=== PATIENT | female | born 1975 | race Caucasian/White ===

== ENCOUNTER 2017-12-27 06:23 | Day surgery (SDC) | payer OTHER, SELFPAY ==
[2017-12-22 15:47] LABS: Hematocrit 43.3 % (37-47); Hemoglobin 14.5 g/dl (12.0-15.0); Mean Corp Hgb Conc 33.5 g/gl (32-36); Mean Corpuscular Hgb 29.9 pg (27.0-32.0); Mean Corpuscular Volume 89.3 fL (81-99); Mean Platelet Vol. 10.1 fl (6.2-12.0); Platelet Count 253 K/mm3 (150-450); RBC Distribution Width CV 12.7 % (11.6-14.6); RBC Distribution Width SD 41.6 fl (35.1-43.9); Red Blood Count 4.85 M/mm3 (4.2-5.4); White Blood Count 11.6 K/mm3 (4.4-11.0)
[2017-12-22 15:48] LABS: Scan Indicated on CBC? Y/N NO
[2017-12-22 15:59] LABS: Creatinine, Serum 0.74 mg/dL (0.55-1.02); EST Glomerular Filtration Rate 90 mL/min (>60); Est Glom Filt Rate - Afr Amer 109 mL/min (>60)
[2017-12-22 16:09] LABS: Prothrombin Time (Protime)PT. 13.4 SECONDS (11.7-14.9)
[2017-12-22 16:10] LABS: Partial Thromboplast Time 26.9 Seconds (24.1-36.2)
--- NOTE | 2017-12-26 13:53 | PCM.HP.BLA ---
History and Physical Date of Admission: 12/27/17 Surgical History and Physical Ibis Castaneda, a 42 year old female 2 0 1 0 2, presents for RAVH/BS on December 27, 2017 at 8:30. -- Recurrent Menorrhagia s/p Ablation; Known Fibroids -- Had a HTA 11/[address] 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 Menses are regular and last 5-6days but are extremely heavy and with lots of clots. She is currently on Sprintec again and sts it gives her minimal control. Menorrhagia which began 2 years ago. Ibis claims it started approx 1yr s/p HTA and has been present constantly for 2 years. It occurs during menses. It is located in the vagina. Ibis characterizes the quality heavy. Severity is severe. OCP's offer minimal help. Associated signs and symptoms are Menorrhagia. Additional comments are: Had hysteroscopy and D and C about 2004, HTA in about 2014, now bleeding heavily again; known fibroids noted at time of hysteroscopy. MEDICATIONS HISTORY: Patient is also takin. Multiple Vitamin, Womens tablet, One pill by mouth once a day 2. Sprintec (28) 0.25 mg-35 mcg tablet, 1 qd ALLERGIES: NKA Infections - none Illnesses - no serious past illnesses Accidents - no injuries of consequence Hospitalizations - Childbirth and see surgery Review of Systems: GENERAL - Denies fever, or chills SKIN - Denies skin changes EYES - Denies visual changes EARS - Denies difficulty hearing NOSE - Denies nasal congestion or bleeding MOUTH - Denies sore throat or difficulty swallowing NECK - Denies pain or swelling RESPIRATORY - Denies shortness of breath or wheezing CARDIOVASCULAR - Denies palpitations or chest pain GASTROINTESTINAL - Denies nausea, vomiting, diarrhea, constipation GENITOURINARY - Denies dysuria, frequency of urination, incontinence of urine MUSCULOSKELETAL - Denies joint or muscle pain NEUROLOGICAL - Denies localized numbness or weakness PSYCHIATRIC - Denies depression or anxiety ENDOCRINE - Denies heat or cold intolerance, weight loss or gain HEMATO-IMMUNOLOGIC - Denies excesive bleeding with cuts SOCIAL HISTORY: Alcohol Use - drinks occasionally Smoking - denies smoking Diet - no special diet Lifestyle - moderate stress lifestyle and Exercise - active Seat Belt Use - always Employer - [employer] 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 MENSTRUAL HISTORY: LMP Known?- HTAAmount/Duration - 5-6 DAYS, Regularity - Regular, Frequency - monthly days, LMP - 09/20/17, Age Onset Menarche - 9 PAST PREGNANCIES: Total Pregnancies - 3; Full Term Pregnancies - 2; Premature - 0; Abortions, Induced - 0; Abortions, Spontaneous - 1; Ectopics - 0; Multiple Births - 0; Living Children - 2 SURGICAL HISTORY: 1. Tubal, 2000 2. 12/05/2014 hysteroscopy, [facility] ; Dr. Azeb Calderon 3. 2005 H/S, D and C ; Mo Guy M.D. PHYSICAL EXAM BP- 144/82 Sitting, Right arm, large cuff Weight- 233.37834 lbs Height- 63.75 inch BMI:40.39 CONSTITUTIONAL - NAD, well nourished, and well developed SKIN - No rash, lesions, or ulcers HEENT - Normocephalic, PERRLA, EOMI NECK - No nodes, no nuchal rigidity and thyroid normal size and texture LYMPH NODES - Palpation of lymph nodes in neck and groins within normal limits LUNGS - CTA x2 without wheezes, crackles or rales CARDIAC - Regular rate and rhythm without rubs, murmurs, or gallops ABDOMEN - Without hepatosplenomegaly, distention, masses, rebound, or guarding; normal bowel sounds; no hernias EXTREMITIES - No edema or calf tenderness NEUROLOGICAL - Cranial nerves II-XII grossly intact PSYCHIATRIC - A and O to time, place, person, mood and affect External Genital Vagina - non-tender without lesions Urethra/Urethral Meatus - non-tender Bladder - non-tender Vagina - vaginal pfeiffer are pink and moist without loss of rugae and no evidence of atropy Cervix - without cervical motion tenderness and has normal size and features without evident lesions Uterus - enlarged uterus 8 wks, wt 125-150 g Adnexa - clear without masses or tenderness ASSESSMENT/PLAN: 1. Leiomyoma Of Uterus, Unspecified, Menorrhagia and Premenopausal Recurrent S/P HTA and S/P Hysteroscopy D and C. EMBx OK. Pt bleeding increasing gradually and now nearly intolerable for 4 days monthly. Discussed options and patient wants to proceed with hysterectomy. Minimal decensus of cervix so will proceed with RAVH/BS. Discussed RBAs and all questions answered.
--- NOTE | 2017-12-26 13:56 | HP.PCM_ITS ---
History and Physical Date of Admission: 12/27/17 Surgical History and Physical Ibis Castaneda, a 42 year old female 2 0 1 0 2, presents for RAVH/ BS on December 27, 2017 at 8:30. -- Recurrent Menorrhagia s/p Ablation; Known Fibroids -- Had a HTA 11/[address] 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 Menses are regular and last 5-6days but are extremely heavy and with lots of clots. She is currently on Sprintec again and sts it gives her minimal control. Menorrhagia which began 2 years ago. Ibis claims it started approx 1yr s/p HTA and has been present constantly for 2 years. It occurs during menses. It is located in the vagina. Ibis characterizes the quality heavy. Severity is severe. OCP's offer minimal help. Associated signs and symptoms are Menorrhagia. Additional comments are: Had hysteroscopy and D and C about 2004, HTA in about 2014, now bleeding heavily again; known fibroids noted at time of hysteroscopy. MEDICATIONS HISTORY: Patient is also takin. Multiple Vitamin, Womens tablet, One pill by mouth once a day 2. Sprintec (28) 0.25 mg-35 mcg tablet, 1 qd ALLERGIES: NKA Infections - none Illnesses - no serious past illnesses Accidents - no injuries of consequence Hospitalizations - Childbirth and see surgery Review of Systems: GENERAL - Denies fever, or chills SKIN - Denies skin changes EYES - Denies visual changes EARS - Denies difficulty hearing NOSE - Denies nasal congestion or bleeding MOUTH - Denies sore throat or difficulty swallowing NECK - Denies pain or swelling RESPIRATORY - Denies shortness of breath or wheezing CARDIOVASCULAR - Denies palpitations or chest pain GASTROINTESTINAL - Denies nausea, vomiting, diarrhea, constipation GENITOURINARY - Denies dysuria, frequency of urination, incontinence of urine MUSCULOSKELETAL - Denies joint or muscle pain NEUROLOGICAL - Denies localized numbness or weakness PSYCHIATRIC - Denies depression or anxiety ENDOCRINE - Denies heat or cold intolerance, weight loss or gain HEMATO-IMMUNOLOGIC - Denies excesive bleeding with cuts SOCIAL HISTORY: Alcohol Use - drinks occasionally Smoking - denies smoking Diet - no special diet Lifestyle - moderate stress lifestyle and Exercise - active Seat Belt Use - always 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 MENSTRUAL HISTORY: LMP Known?- HTAAmount/Duration - 5-6 DAYS, Regularity - Regular, Frequency - monthly days, LMP - 09/20/17, Age Onset Menarche - 9 PAST PREGNANCIES: Total Pregnancies - 3; Full Term Pregnancies - 2; Premature - 0; Abortions, Induced - 0; Abortions, Spontaneous - 1; Ectopics - 0; Multiple Births - 0; Living Children - 2 SURGICAL HISTORY: 1. Tubal, 2000 2. 12/05/2014 hysteroscopy, [facility] ; Dr. Azeb Calderon 3. 2005 H/S, D and C ; Mo Guy M.D. PHYSICAL EXAM BP- 144/82 Sitting, Right arm, large cuff Weight- 233.49373 lbs Height- 63.75 inch BMI:40.39 CONSTITUTIONAL - NAD, well nourished, and well developed SKIN - No rash, lesions, or ulcers HEENT - Normocephalic, PERRLA, EOMI NECK - No nodes, no nuchal rigidity and thyroid normal size and texture LYMPH NODES - Palpation of lymph nodes in neck and groins within normal limits LUNGS - CTA x2 without wheezes, crackles or rales CARDIAC - Regular rate and rhythm without rubs, murmurs, or gallops ABDOMEN - Without hepatosplenomegaly, distention, masses, rebound, or guarding; normal bowel sounds; no hernias EXTREMITIES - No edema or calf tenderness NEUROLOGICAL - Cranial nerves II-XII grossly intact PSYCHIATRIC - A and O to time, place, person, mood and affect External Genital Vagina - non-tender without lesions Urethra/Urethral Meatus - non-tender Bladder - non-tender Vagina - vaginal pfeiffer are pink and moist without loss of rugae and no evidence of atropy Cervix - without cervical motion tenderness and has normal size and features without evident lesions Uterus - enlarged uterus 8 wks, wt 125-150 g Adnexa - clear without masses or tenderness ASSESSMENT/PLAN: 1. Leiomyoma Of Uterus, Unspecified, Menorrhagia and Premenopausal Recurrent S/P HTA and S/P Hysteroscopy D and C. EMBx OK. Pt bleeding increasing gradually and now nearly intolerable for 4 days monthly. Discussed options and patient wants to proceed with hysterectomy. Minimal decensus of cervix so will proceed with RAVH/BS. Discussed RBAs and all questions answered.
[2017-12-27] VITALS (10 sets, daily range): BP systolic 112–133; BP diastolic 65–86; PULSE 57–81; RESP 16–18; TEMP 36.2–37.3; O2SAT 58–99; BMI 39.4
--- NOTE | 2017-12-27 08:30 | HYST_PTH ---
PATIENT: MAIKOL ARRIAGA LOC: [facility] U#:[id number] AGE/SX: 42/F ROOM: RE12/27/[address]: Dr. Mo Guy MD : [id number] BED: DIS: 12/28/2017 SPEC #: [id number] RECD: 12/27/17 11:24 STATUS: SAWYER EUGENE #: [id number] ANUM: 12/27/17 08:[address]: Mo Guy DEPT: SURGICAL PATHOLOGY RECD BY: Unruly Mistry ENTERED: 12/27/17 11:52 SP TYPE: HYSTERECT OTHR DR: Dr. Mo Hwang MD Tissues: Uterus, NOS Procedures: Surgery Specimen Level V HEADER OPERATION: Robotic assisted vaginal hysterectomy, bilateral salpingectomy PRE-OP DIAGNOSIS: Leiomyoma of uterus and menorrhagia TISSUE SUBMITTED: Uterus, cervix, bilateral fallopian tubes MICROSCOPIC DIAGNOSIS Uterus, cervix, bilateral fallopian tubes, vaginal hysterectomy and bilateral salpingectomy: Cervix ? chronic cystic cervicitis. Endometrium ? weakly proliferative endometrium. Myometrium - no pathologic diagnosis. Bilateral fallopian tubes - no pathologic diagnosis. Right paratubal cyst. SJ:justina 12/28/17 MICROSCOPIC DESCRIPTION Slides are reviewed. GROSS DESCRIPTION Received in fixative is one container labeled with the patient's name and designated uterus. The specimen consists of a uterus with attached right and left fallopian tubes. The uterus with cervix measures 10.5 x 6.5 x 5 cm and weighs 133.4 gm. The ectocervix is unremarkable and cervical os is oval in contour. The endocervical canal measures 3.2 cm in length and is grossly unremarkable. The triangular endometrial cavity measures 3.8 x 3.5 cm. The endometrium is light lujan, velvety and glistening and measures up to 0.2 cm in thickness. The myometrium measures 2.5 cm in average thickness and is free of mass lesions. The right and left fallopian tubes are similar in appearance and measure 5 cm in average length and 0.5 cm in average diameter. No mass lesions are identified. Tissue adjacent to the fimbriated end of the right fallopian tube contains a smooth, glistening cyst measuring 0.6 cm and containing clear fluid. Reproduction Production Manager sections are submitted as follows: 1 - anterior cervix, 2 - posterior cervix, 3 & 4 - anterior uterine wall, 5 & 6 - posterior uterine wall, 7 ? right fallopian tube and paratubal cyst, 8 ? left fallopian tube. / AM:justina 12/27/17 TC:5 CPT: 13229
--- NOTE | 2017-12-27 08:48 | OP.PCM_ITS ---
Operative Report Date of Procedure: 12/27/17 Surgeon: Mo Guy MD, FACOG Personal Property Assessor: Scot Jacobs CRNA Anesthesia: Jose L Guy MD Type of anesthesia: General Endotracheal Procedure: Robotic Assisted Vaginal Hysterectomy and Bilateral Salpingectomy Pre-Op: Menorrhagia and Uterine Fibroids Post-Op: Menorrhagia and Uterine Fibroids Findings: 8 cm fibroid uterus with normal appearing tubes and ovaries bilaterally. Evidence of prior tubal ligation. Lesions of omentum to right pelvic sidewall taken down with bipolar cautery. Indication: This is a 42 year old patient who has been having problems with heavy periods. Conservative measures have not been helpful including a prior endometrial ablation and prior D&C. The patient has been counseled regarding the risks, benefits and alternatives of this procedure including the possibility of bleeding, infection, and injury to surrounding structures such as bowel bladder and all questions were answered. Procedure: Pt taken to the operating room where after induction of general anesthesia the patient was prepped and draped in the usual sterile fashion and placed on a non-slip Huggy-u-vac device. Trendendelenburg test was satisfactory. Bladder was drained of urine with a Francois catheter which was left in place. Anterior cervix grasped and cervix was dilated to about 3-4 mm. Uterus sounded to 8 cms. 0-Vicryl suture was placed at the 3:00 and 9:00 position of the cervix. A medium v-care device was then placed in the uterus to allow uterine manipulation and attention was turned to the laparoscopic portion of the procedure. Ropivocaine 0.5% was injected approximately 2-3 cm superior to the umbilicus and an 8 mm robotic camera port was introduced directly with intraperitoneal placement confirmed with insufflation. 8 mm robotic side ports were introduced under direct visualization approximately 11-13 cm lateral and 2 cm inferior to the umbilical port. A 5 mm left upper quadrant port was introduced and airseal insufflation with CO2 was started. The above findings were noted. Robot was docked without difficulty and attention turned to the robotic portion of the procedure. Approximately 27 cc of Ropivicaine was used. Bilateral infundibulocal ligaments/mesosalpinx were ligated with 35 whittington bipolar coagulation to the level of the round ligament. The posterior aspect of the cervix was identified and then opened for about 1 cm using 25 watt monopolar cautery identifying the V-care device which had been placed vaginally. Bladder flap was opened and divided to the level of the round ligaments using monopolar cautery. Progressive bites were then ligated on each side of the cervix with 35 whittington bipolar cautery to the uterine arteries. The anterior vaginal mucosa was then entered and cervix circumscribed with monopolar cautery. Uterus and attached tubes were then removed through the vagina. Vaginal cuff was closed first with 0-Vicryl Bel stitches placed at each angle followed by closure of the mid-cuff with 0-Monocryl V-lock suture in two layers. Pelvis was copiously irrigated with saline and the right ureter small noted to peristalse. Robot was undocked and trocars were removed with as much gas as possible. Incisions were closed with 4-0 Monocryl subcuticular sutures and incisions covered with steri-strips and opsite dressing. The patient tolerated the procedure well and was taken to the recovery room in satisfactory condition. Sponge, instruments and needle counts were all correct. There were no apparent complications of the surgery. Cefotan 2 gms IV was given prior to the procedure. Estimated Blood Loss: Minimal Specimen to Pathology: Uterus and bilateral tubes and ovaries
--- NOTE | 2017-12-27 08:48 | PCM.DC.VHY ---
Discharge Diet: No Restrictions Discharge Activity: Return to Normal Activity, May Not Drive - while taking narcotic pain medications., May Shower May resume sexual activity in: 6-8 weeks Call your doctor if your incision/area has: Continuous Slow Oozing, Sudden Increased Bleeding, Increased Pain/ Swelling, Increased Redness, Foul Smelling Discharge Call your doctor if you observe: Fever of 101 or Higher, Inability to urinate, Inability to have a bowel movement, Using more than one pad per hour Allergies/Adverse Reactions: Allergies No Known Allergies Allergy (Verified 12/20/17 08:11) Medications to take at Discharge Norgestimate-Ethinyl Estradiol [Sprintec 28 Day Tablet] 1 tab PO DAILY 12/20/17 Docusate Sodium [Colace] 100 mg PO BID PRN PRN #60 cap 12/27/17 Oxycodone [Oxyir] 5 mg PO Q6H PRN PRN 7 Days #20 tab 12/27/17 The following prescriptions were given: Oxycodone [Oxyir] 5 mg PO Q6H PRN PRN 7 Days #20 tab PRN Reason: Severe Pain (-06/22) Docusate Sodium [Colace] 100 mg PO BID PRN PRN #60 cap PRN Reason: Constipation Primary Care Physician: Mo Hwang [Primary Care Provider] - Please Follow Up With: Mo Guy MD When: 2-3 weeks
[2017-12-27] MEDS: Ropivacaine 0.5% 30 ML Vial (09:20)
[2017-12-27] MEDS: Dextrose 5%-Lactated Ringers 1,000 ML 150 ML IV ×2 (13:17→20:05)
[2017-12-27] MEDS: 0.9% NaCl Peripheral Flush Adult/Peds IV (13:46)
[2017-12-27] MEDS: Acetaminophen 500 MG Tablet 1000 MG PO ×2 (13:46→21:08)
[2017-12-27] MEDS: Ketorolac 30 MG/ML Syringe IV (17:21)
[2017-12-27] MEDS: Enoxaparin 40 MG/0.4 ML Syringe SC (17:21)
[2017-12-28] MEDS: Ketorolac 30 MG/ML Syringe IV (00:17)
[2017-12-28] MEDS: 0.9% NaCl Peripheral Flush Adult/Peds IV (00:18)
[2017-12-28 02:45] VITALS: BP 121/71; PULSE 73; RESP 16; TEMP 36.9; O2SAT 96
[2017-12-28 05:57] LABS: Hematocrit 39.1 % (37-47); Hemoglobin 13.1 g/dl (12.0-15.0); Mean Corp Hgb Conc 33.5 g/gl (32-36); Mean Corpuscular Hgb 30.5 pg (27.0-32.0); Mean Corpuscular Volume 90.9 fL (81-99); Mean Platelet Vol. 10.4 fl (6.2-12.0); Platelet Count 219 K/mm3 (150-450); RBC Distribution Width CV 12.8 % (11.6-14.6); RBC Distribution Width SD 42.1 fl (35.1-43.9); White Blood Count 14.9 K/mm3 (4.4-11.0)
[2017-12-28 06:07] LABS: EST Glomerular Filtration Rate 83 mL/min (>60); Est Glom Filt Rate - Afr Amer 100 mL/min (>60); Estimated Creatinine Clearance 77.49 ml/min
[2017-12-28 06:08] LABS: Scan Indicated on CBC? Y/N NO
[2017-12-28] MEDS: Ketorolac 10 MG Tablet PO (06:31)
[2017-12-28] MEDS: Acetaminophen 500 MG Tablet 1000 MG PO (06:31)
--- NOTE | 2017-12-28 07:34 | PCM.PROGNOTE ---
Subjective: POD#1 Robotic assisted vaginal hysterectomy and Bilateral salpingectomy Doing well. Minimal pain. Up walking halls. No vaginal bleeding reported. able to urinate already after cat removed. Feels she is going to start to pass gas soon as can feel things moving around Feels really well. 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 - Physical Exam General: Alert, Oriented x3, Cooperative, No apparent distress HEENT: Atraumatic Neck: Supple Abdomen: Soft Skin: Incision - Upper abdominal L/S incisions CDI. Op sites over each w/o shadow drainage Neurological: Cranial nerves II-XII grossly intact Psych/Mental Status: Normal Affect Vital Signs Temp Pulse Resp BP Pulse Ox 98.5 F 73 16 121/71 H 96 /17/18 02:45 18 02:45 18 02:45 18 02:45 18 02:45 Oxygen Flow Rate (L/min) 2 Oxygen Delivery Method Room Air Weight: 104.3 kg Body Mass Index (BMI) 39.4 Intake and Output for Last 24 Hours 04/15/18 /16/18 /17/18 23:59 23:59 23:59 Intake Total 2832 / 2832 1542 / 1542 Output Total 2075 / 2075 475 / 475 Balance 757 / 757 1067 / 1067 Laboratory Tests Past 24 Hrs 04/17/18 /17/18 05:25 05:25 WBC 14.9 H RBC 4.30 Hgb 13.1 Hct 39.1 MCV 90.9 MCH 30.5 MCHC 33.5 RDW 12.8 RDW Differential 42.1 Plt Count 219 MPV 10.4 Creatinine 0.80 Estim Creat Clear Calc 77.49 Est GFR (MDRD) Af Amer 100 Est GFR (MDRD) Non-Af 83 Medical Necessity - Tobacco Use Smoking Status: Never smoker Assessment/Plan POD#1 Robotic assisted vaginal hysterectomy and bilateral salpingectomy Stable postop. Reviewed dischg instructions. Dischg home today. RTO in 2 wk for postop f/u check.
--- NOTE | 2017-12-28 07:37 | PCM.DC.SUM ---
Discharge Date and Diagnosis Date of Admission: 12/27/17 - robotic assisted vag hyster and bilateral salpingectomy Date of Discharge: 12/28/17 Hospital Course and Treatment Operations: hysterectomy - robotic assisted vaginal hysterectomy and bilateral salpingectomy, - Summary of Care Provided: The patient is a 42 year old F presents for robotic assisted vaginal hysterectomy and Bilateral salpingectomy. Procedure performed on 12/27/17 , without complication. Postop course uneventful. AVSS mild leukocytosis (likely reactive). Dischg home on POD#1 to f/u in [facility] in 2 wk for postop appt. Discharge Diet: No Restrictions Discharge Activity: Return to Normal Activity, May Not Drive - while taking narcotic pain medications., May Shower May resume sexual activity in: 6-8 weeks Call your doctor if your incision/area has: Continuous Slow Oozing, Sudden Increased Bleeding, Increased Pain/ Swelling, Increased Redness, Foul Smelling Discharge Call your doctor if you observe: Fever of 101 or Higher, Inability to urinate, Inability to have a bowel movement, Using more than one pad per hour Home Medications: Medications to take at Discharge Norgestimate-Ethinyl Estradiol [Sprintec 28 Day Tablet] 1 tab PO DAILY 12/20/17 Docusate Sodium [Colace] 100 mg PO BID PRN PRN #60 cap 12/27/17 Oxycodone [Oxyir] 5 mg PO Q6H PRN PRN 7 Days #20 tab 12/27/17 Following Prescrptions Were Given to Patient: Oxycodone [Oxyir] 5 mg PO Q6H PRN PRN 7 Days #20 tab PRN Reason: Severe Pain (6-06/22) Docusate Sodium [Colace] 100 mg PO BID PRN PRN #60 cap PRN Reason: Constipation Primary Care Physician: Mo Hwang [Primary Care Provider] - Please Follow Up With: Mo Guy MD When: 2-3 weeks Medical Necessity - Tobacco Use Smoking Status: Never smoker Meaningful Use Info Meaningful Use Diagnoses (Choose all that apply): None applicable
--- NOTE | 2017-12-28 07:40 | DS.PCM_ITS ---
Discharge Date and Diagnosis Date of Admission: 12/27/17 - robotic assisted vag hyster and bilateral salpingectomy Date of Discharge: 12/28/17 Hospital Course and Treatment Operations: hysterectomy - robotic assisted vaginal hysterectomy and bilateral salpingectomy, - Summary of Care Provided: The patient is a 42 year old F presents for robotic assisted vaginal hysterectomy and Bilateral salpingectomy. Procedure performed on 12/27/17 , without complication. Postop course uneventful. AVSS mild leukocytosis ( likely reactive). Dischg home on POD#1 to f/u in [facility] in 2 wk for postop appt. Discharge Diet: No Restrictions Discharge Activity: Return to Normal Activity, May Not Drive - while taking narcotic pain medications., May Shower May resume sexual activity in: 6-8 weeks Call your doctor if your incision/area has: Continuous Slow Oozing, Sudden Increased Bleeding, Increased Pain/ Swelling, Increased Redness, Foul Smelling Discharge Call your doctor if you observe: Fever of 101 or Higher, Inability to urinate, Inability to have a bowel movement, Using more than one pad per hour Home Medications: Medications to take at Discharge Norgestimate-Ethinyl Estradiol [Sprintec 28 Day Tablet] 1 tab PO DAILY 12/20/17 Docusate Sodium [Colace] 100 mg PO BID PRN PRN #60 cap 12/27/17 Oxycodone [Oxyir] 5 mg PO Q6H PRN PRN 7 Days #20 tab 12/27/17 Following Prescrptions Were Given to Patient: Oxycodone [Oxyir] 5 mg PO Q6H PRN PRN 7 Days #20 tab PRN Reason: Severe Pain (6-06/22) Docusate Sodium [Colace] 100 mg PO BID PRN PRN #60 cap PRN Reason: Constipation Primary Care Physician: Mo Hwang [Primary Care Provider] - Please Follow Up With: Mo Guy MD When: 2-3 weeks Medical Necessity - Tobacco Use Smoking Status: Never smoker Meaningful Use Info Meaningful Use Diagnoses (Choose all that apply): None applicable
[2017-12-28 08:18] VITALS: BP 126/75; PULSE 75; RESP 18; TEMP 36.7; O2SAT 95
[2017-12-28 09:40] VITALS: BP 126/75; PULSE 75; RESP 18; TEMP 36.7; O2SAT 95
== END 2017-12-28 09:40 | disposition home or self-care (01) ==
LOC: SDC 06:24 → AC 06:25 → MS2 12-28 07:16
PROVIDERS: Family Provider Family Medicine; PCP Family Medicine; Visit Provider Obstetrics & Gynecology
PROC: 0UT90ZZ Resection of Uterus, Open Approach (ICD-10-PCS; CPT 58552; principal; 2017-12-27 08:10)
DX: N92.4 Excessive bleeding in the premenopausal period (principal); D25.9 Leiomyoma of uterus, unspecified; N72 Inflammatory disease of cervix uteri; N83.8 Other noninflammatory disorders of ovary, fallopian tube and broad ligament
CPT/HCPCS: 00840; 58552; S2900; 36415; 82565; 85027; 85610; 85730; 86850; 86900; 88307; J7120; A4216; J2405